=== PATIENT | female | born 1995 | race Hispanic/Latino ===

== ENCOUNTER 2017-11-11 09:53 | Observation (INO) | payer SELFPAY ==
[~2017-11-11] VITALS: Ht 170.2 cm; Wt 55.8 kg
[2017-11-11] MEDS ORDERED: SODIUM CHLORIDE 0.9% 1000ML 1,000 ML IV STA (09:54)
[2017-11-11 10:43] LABS: BASOPHILS # (AUTO) 0.1 (0.0-0.1); BASOPHILS % 1.1 % (0.0-1.0); EOSINOPHILS % 0.7 % (0.0-6.0); HEMATOCRIT 34.9 % (34.2-44.1); HEMOGLOBIN 11.4 g/dL (12.0-16.0); LYMPHOCYTES # (AUTO) 1.7 (1.0-3.2); LYMPHOCYTES % 30.5 % (18.0-39.1); MEAN CORPUSCULAR HEMOGLOBIN 28.6 pg (28-32); MEAN CORPUSCULAR HGB CONC 32.7 g/dL (31-35); MEAN CORPUSCULAR VOLUME 87.7 fL (81-99); MONOCYTES # (AUTO) 0.7 (0.2-0.8); MONOCYTES % 12.3 % (4.4-11.3); PLATELET COUNT 348 x10e3/uL (140-360); RED BLOOD COUNT 3.98 x10e6/uL (3.6-5.1); RED CELL DISTRIBUTION WIDTH 14.8 % (11.7-14.4)
[2017-11-11 10:45] LABS: BILIRUBIN,URINE NEGATIVE (NEGATIVE); KETONES,URINE 2+ (NEGATIVE); LEUKOCYTE ESTERASE ,URINE NEGATIVE (NEGATIVE); NITRITE,URINE NEGATIVE (NEGATIVE); PROTEIN,URINE DIPSTICK NEGATIVE (NEGATIVE); URINE UROBILINOGEN 0.2 mg/dL (0.2 - 1)
[2017-11-11 10:52] LABS: AMPHETAMINES SCREEN,URINE NEGATIVE (NEGATIVE); BENZODIAZEPINES SCREEN,URINE POSITIVE (NEGATIVE); PHENCYCLIDINE SCREEN,URINE NEGATIVE (NEGATIVE)
[2017-11-11 10:53] LABS: INR 0.94
[2017-11-11 10:54] LABS: PREGNANCY TEST, URINE NEGATIVE (NEGATIVE)
[2017-11-11 10:55] LABS: CLARITY,URINE CLEAR (CLEAR); COLOR,URINE YELLOW (YELLOW)
[2017-11-11 11:02] LABS: ALANINE AMINOTRANSFERASE 14 IU/L (0-55); ALBUMIN 4.6 g/dL (3.5-5.0); ALBUMIN/GLOBULIN RATIO 1.2 (0.8-2.0); ALKALINE PHOSPHATASE 111 IU/L (40-150); ANION GAP 14.1 mmol/L (8-16); BLOOD UREA NITROGEN 8 mg/dL (7-26); BUN/CREATININE RATIO 10 (6-25); CALCIUM 9.5 mg/dL (8.4-10.2); CARBON DIOXIDE 26 mmol/L (22-29); CHLORIDE 103 mmol/L (98-107); CREATININE, SERUM 0.77 mg/dL (0.57-1.11); EST GLOMERULAR FILTRATION RATE > 60 ML/MIN (60-); GLUCOSE 80 mg/dL (74-118); LIPASE 17 U/L (8-78); MAGNESIUM 2.3 MG/DL (1.3-2.1); POTASSIUM 3.1 mmol/L (3.5-5.1); SODIUM 140 mmol/L (136-145)
[2017-11-11] MEDS ORDERED: ONDANSETRON HCL INJ 2 MG/ML VIAL IV PRN (11:15)
[2017-11-11] MEDS ORDERED: SODIUM CHLORIDE FLUSH 10 ML SYR INJ PRN (11:15)
[2017-11-11 11:22] LABS: EPITHELIAL CELLS,URINE RARE /LPF
[2017-11-11 11:52] LABS: ACETAMINOPHEN < 3 ug/mL (10-30); SALICYLATE < 5.0 mg/dL (0-30)
[2017-11-11] MEDS ORDERED: PROMETHAZINE 12.5MG/ NACL 0.9% 12.5 MG/50 ML BAG IV ONE (12:00)
[2017-11-11] MEDS: KCL 20MEQ/.9 SOD CHL 1,000 ML IV SCH ×2 (12:15→21:53)
[2017-11-11 20:30] VITALS: BP 94/55
[2017-11-11 20:42] VITALS: BP 94/55
[2017-11-11] MEDS ORDERED: QUETIAPINE FUMARATE 25 MG TAB PO SCH (21:00)
[2017-11-12] VITALS (8 sets, daily range): BP systolic 96–139; BP diastolic 5–78
[2017-11-12 06:34] LABS: BASOPHILS % 0.6 % (0.0-1.0); EOSINOPHILS # (AUTO) 0.1 (0.0-0.4); EOSINOPHILS % 2.9 % (0.0-6.0); HEMATOCRIT 30.8 % (34.2-44.1); HEMOGLOBIN 9.7 g/dL (12.0-16.0); LYMPHOCYTES # (AUTO) 1.9 (1.0-3.2); LYMPHOCYTES % 38.4 % (18.0-39.1); MEAN CORPUSCULAR HEMOGLOBIN 28.1 pg (28-32); MEAN CORPUSCULAR HGB CONC 31.5 g/dL (31-35); MEAN CORPUSCULAR VOLUME 89.3 fL (81-99); MONOCYTES # (AUTO) 0.5 (0.2-0.8); MONOCYTES % 9.3 % (4.4-11.3); NEUTROPHILS # (AUTO) 2.4 (2.1-6.9); NEUTROPHILS % 48.6 % (38.7-80.0); PLATELET COUNT 292 x10e3/uL (140-360); RED BLOOD COUNT 3.45 x10e6/uL (3.6-5.1); RED CELL DISTRIBUTION WIDTH 15.1 % (11.7-14.4)
[2017-11-12 06:55] LABS: ALANINE AMINOTRANSFERASE 10 IU/L (0-55); ALBUMIN 3.3 g/dL (3.5-5.0); ALBUMIN/GLOBULIN RATIO 1.2 (0.8-2.0); ALKALINE PHOSPHATASE 81 IU/L (40-150); ANION GAP 11.7 mmol/L (8-16); BLOOD UREA NITROGEN 8 mg/dL (7-26); BUN/CREATININE RATIO 11 (6-25); CALCIUM 8.4 mg/dL (8.4-10.2); CARBON DIOXIDE 24 mmol/L (22-29); CHLORIDE 110 mmol/L (98-107); EST GLOMERULAR FILTRATION RATE > 60 ML/MIN (60-); GLUCOSE 74 mg/dL (74-118); POTASSIUM 3.7 mmol/L (3.5-5.1); SODIUM 142 mmol/L (136-145)
[2017-11-12] MEDS: KCL 20MEQ/.9 SOD CHL 1,000 ML IV SCH ×2 (07:53→17:01)
[2017-11-12] MEDS ORDERED: LORAZEPAM INJ 2 MG/ML VIAL IM PRN (08:15)
[2017-11-12] MEDS ORDERED: LORAZEPAM 0.5 MG TAB PO PRN (08:15)
--- NOTE | 2017-11-12 08:17 | History and Physical ---
A 22-year-old female comes in with her boyfriend for apparent suicidal attempt and self-injury. HISTORY OF PRESENT ILLNESS: This is a 22-year-old female with a history of depression in the past, and was given medication when started it at 9-12 years of age. Did not take the medication because of the way it makes her feel. She has been continuing with her life. Yesterday, the patient had a verbal argument with her boyfriend apparently, and she overdid her street drugs, which she admits to drinking more alcohol than she should, Ecstasy, and also rubbing alcohol and Xanax. Boyfriend was concerned with suicide and brought her to the emergency room. The patient has a history of recent drug abuse. No history of hospitalization in the past for the same. PAST MEDICAL HISTORY: History of depression, history of drug abuse, history of prior suicide attempts and multiple psychiatric, chest pain, left . Otherwise was negative. SURGICAL HISTORY: Noncontributory. REVIEW OF SYSTEMS: Negative for chest pain. No shortness of breath. No palpitations. No dyspnea on exertion or dyspnea. No fever. No sore throat. No weight loss. No cough or congestion. No photophobia. No blurry vision. No nasal congestion. No abdominal pain, rectal bleeding, hematochezia, hematemesis. The patient has had 2 abortions in the past. SOCIAL HISTORY: She is an every day smoker. She smokes a pack a day. Does do alcohol. No IV drug use at this time, but has been smoking marijuana. Also, has depressed stemmed at age 9-12 when her parents went through a divorce. Ever since then, she has been depressed according to her. PHYSICAL EXAMINATION GENERAL: The patient is alert and oriented times 3. Cheerful at this time. VITALS: Temperature is 97.2, blood pressure 139/78, pulse oximetry is 99%, respirations 18. HEENT: Normocephalic and atraumatic. Pupils are reactive to light and accommodation. CV: S1 and S2 normal. Regular rate and rhythm. ABDOMEN: Nontender and nondistended. EXTREMITIES: No clubbing. No cyanosis. No edema. SKIN: Normal. NEURO: She appears depressed. Affect is normal. Does not express and suicidal thoughts at this time. Does not express any homicidal thoughts at this time. No motor deficits. No sensory deficits. Overall, neuro exam is normal. INITIAL LABS: EKG with no ST-T segments. LABORATORY TESTS: Hematology: White count is 5.5, hemoglobin 11.4, hematocrit 34.9, RDW 14.8. Chemistry: Sodium is 140, potassium 3.9, chloride 103, BUN 8, creatinine 0.7, magnesium 2.3. Alk phos, albumin, globulin 3.7. Toxicology: The patient's urine was negative. Barbiturate was negative. Amphetamines were negative, but positive for benzodiazepine, cocaine, and also cannabinoids. Ethanol alcohol was 43.3. ASSESSMENT: A 22-year-old female with: 1. Notable depression, major depressive disorder. 2. Substance abuse, namely benzodiazepine, cocaine and cannabinoids. The patient has been counseled. For right now, will go ahead and consult Dr. Feliciano for psych evaluation and possible treatment. Will also put a social service consult for placement if needed. Further recommendation as per Dr. Feliciano's consult and his assessment. Job#: [id number] CT
--- NOTE | 2017-11-12 11:20 | Consultation ---
DATE OF CONSULTATION: November 11, 2017 PSYCHIATRY CONSULTATION REASON FOR CONSULTATION: To evaluate patient's mood. HISTORY OF PRESENT ILLNESS: The patient is a 22-year-old female, admitted to the hospital for substance abuse and suicide attempts. Psychiatric consultation is called to evaluate patient's mood. As per medical record, patient was taken to the hospital for overdose on Xanax, ecstasy, cocaine, marijuana, and rubbing alcohol. Upon evaluation today, patient is found to be in the ER awaiting to be placed in the medical unit. She is with a sitter. Patient is sleeping, but easily arousable. Patient states that she was found by her boyfriend due to decrease in alertness. She admits to drinking rubbing alcohol, 2 bottles of Xanax, some cocaine, marijuana, and ecstasy on Friday. She denies it was a suicide attempt. Patient states that she at times abuse these illegal drugs and this is not her first time drinking rubbing alcohol. Patient states that she has been feeling stressed due to financial issues and having living in the large family unit, sharing rooms with multiple family members. Patient has a 5-year-old daughter who lives with the grandparents. Patient denies any depression. She denies any feeling of hopelessness or helplessness. She denies any suicidal or homicidal ideation. She denies any hallucination. She complains of poor sleep. She denies any appetite problem. She did not elicit paranoia or delusional thinking. Patient states she has been diagnosed when she was 8 of bipolar and depression. She was given Seroquel and Depakote, but ran out of the medications for many years and never continued with the treatment plan. Patient agreed for psych to call her boyfriend and mother whom she lives with. A phone call to patient's mother was placed with the help of carton catcher. As per the mom, patient was taken to the hospital; however, [place], thus she was not aware of the condition that patient was found; however, the mom is aware that patient has been abusing drugs. The mom states that patient is depressed due to her relationship with her boyfriend but does not believe she is suicidal and believes that patient is safe to go home and would not hurt herself or anybody. Another call was placed to patient's boyfriend, who was the one who found the patient. He was not aware that we are on the phone and did not belt picker the phone. Patient states that she does not want to go to inpatient psychiatry as she states she has work. She also receives alcohol and drug rehab. PAST PSYCHIATRIC HISTORY: Patient has a reported history of alcohol and depression for many years. She has never attempted suicide in the past. She drinks alcohol 375 mL of mixture of warm beer liquid 4 times a week. She reported history of taking various drugs including cocaine, marijuana, and ecstasy. FAMILY HISTORY: Denies. SOCIAL HISTORY: Patient lives with her mom and other siblings. MENTAL STATUS EXAM: The patient is a young female. She is alert, awake, and oriented to situation. Her mood is anxious. She denies any suicidal or homicidal ideation. She denies any hallucination. Thought process is concrete. Speech is normal rate and rhythm. Insight and judgment are fair. No delusions or paranoia elicited. Memory is grossly intact. She denies any suicidal or homicidal ideation. CURRENT LABS: WBC 5.51, RBC 3.98, hemoglobin 11.4, hematocrit 34.9, and platelets 348. Sodium 140, potassium 3.1, chloride 103, CO2 of 24, BUN 8, and creatinine 0.77. AST 26 and ALT 14. UDS positive for benzo, positive for cocaine, and positive for cannabinoids. Ethanol level high at 43.3 on 11/11/2017. MEDICATIONS 1. Potassium chloride. 2. Sodium chloride. 3. Zofran. ASSESSMENT: Bipolar disorder, unspecified; polysubstance abuse. PLAN 1. Add Seroquel 25 mg p.o. q.h.s. 2. Add Ativan p.r.n. p.o. and IM. 3. Monitor for agitation and mood. 4. Twenty four-hour observation. 5. Need to place call to patient's boyfriend before further recommendations. 6. Recommend to avoid aspirin and some alcohol and drugs. 7. Recommend alcohol and drugs rehab. 8. Supportive therapy. Thank you for this consultation. Job#: [id number] JOSE ABLERTO
--- NOTE | 2017-11-13 08:46 | Progress Note ---
DATE: November 12, 2017 PSYCHIATRIC PROGRESS NOTE Patient was found to be in bed. She is alert, awake and oriented to situation. Her affect is bright. She denies any depression. She denies any suicidal or homicidal ideation. She denies any hallucinations. She reports increased sleep. She took Seroquel last night and denies any side affects. Patient gave permission to call her boyfriend by my PA. Made a call to the patient's boyfriend, who informed me that she believes the patient is not a risk to herself or others. He has recommended his girlfriend to seek help. Patient is agreeable to outpatient psychiatry, and agreed that she needs to stay sober. Discussed with nursing staff and informed them that the patient is cleared from psychiatry. She can be discharged once medically cleared with family members or friend picking her up. ASSESSMENT: Bipolar disorder, not otherwise specified; polysubstance abuse. PLAN: Continue with Seroquel 25 mg p.o. at bedtime. Continue with Ativan p.r.n. p.o. or IM. Supportive therapy. Recommend total abstinence from alcohol and drugs. Follow up with outpatient psychiatry. DICTATED BY JUDAH ESTEVEZ Job#: [id number] HARJIT
== END 2017-11-12 21:05 | disposition home or self-care (01) ==
LOC: ER 09:53 → ERHOLD 12:52 → MED/SURG 17:13 → MED/SURG2 18:55
PROVIDERS: ADMIT Family Medicine; ATTEND Family Medicine
DX: F31.9 Bipolar disorder, unspecified (principal); F19.10 Other psychoactive substance abuse, uncomplicated; F14.10 Cocaine abuse, uncomplicated; F12.10 Cannabis abuse, uncomplicated; F10.10 Alcohol abuse, uncomplicated; E87.6 Hypokalemia; F17.210 Nicotine dependence, cigarettes, uncomplicated; Z91.5 Personal history of self-harm
CPT/HCPCS: 36415 ×2; 80053 ×2; 80307; 80320; 80329 ×2; 81001; 81025; 83690; 83735; 85025 ×2; 85610; 87086; 93005; 99284; G0378 ×2; J7030